=== PATIENT | male | born 2000 | race Caucasian/White ===

== ENCOUNTER 2019-04-09 22:56 | Emergency (ER) | payer OTHER ==
[~2019-04-09] VITALS: Ht 170.2 cm; Wt 77.3 kg
[2019-04-09 23:02] VITALS: TEMP 99.4
[2019-04-10 00:31] LABS: BASO % 0.1 % (0.0-2.0); EOS # 0.1 (0.0-0.7); EOS % 1.3 % (0-4.0); GRAN # 4.8 (1.4-6.5); GRAN % 67.4 % (42.2-75.2); HEMATOCRIT 42.9 % (36.0-47.0); LYMPH # 1.5 (1.2-3.4); LYMPH % 20.9 % (20.0-51.0); MEAN CELL VOLUME 87 fl (80.0-95.0); MEAN CORPUSCULAR HEMOGLOBIN 31 pg (26.0-32.0); MEAN CORPUSCULAR HGB CONC 35 g/dl (33.0-37.0); MEAN PLATELET VOLUME 9.8 fl (7.4-10.4); MONO # 0.7 (0.1-0.6); MONO % 9.9 % (1.7-9.3); PLATELET COUNT 170 K/mm3 (130-400); RED BLOOD COUNT 4.91 M/mm3 (4.20-5.60); REDCELL DISTRIBUTION WIDTH-CV 11.9 % (11.5-14.5)
[2019-04-10 01:04] LABS: ALANINE AMINOTRANSFERASE 15 U/L (21-72); ALBUMIN 4.5 gm/dL (3.5-5.0); ALKALINE PHOSPHATASE 31 U/L (50-136); ANION GAP 9 mmol/L (7-16); AST,SGOT 26 U/L (15-37); BILIRUBIN,TOTAL 0.4 mg/dL (0.0-1.0); BLOOD UREA NITROGEN 16 mg/dL (9-20); C-REACTIVE PROTEIN 1.7 mg/dL (0.0-0.9); CALCIUM 9.9 mg/dL (8.4-10.2); CARBON DIOXIDE 27 mmol/L (22-30); CHLORIDE 102 mmol/L (98-107); CREATININE, serum 0.98 (0.66-1.25); GLUCOSE 104 mg/dL (74-106); LIPASE 25 U/L (23-300); POTASSIUM 3.8 mmol/L (3.4-5.0); SODIUM 139 mmol/L (137-145); TOTAL PROTEIN 7.7 gm/dL (6.4-8.2)
[2019-04-10 01:11] LABS: TROPONIN-I < 0.012 ng/mL (0.000-0.035)
[2019-04-10] MEDS ORDERED: PROTONIX 40MG T40 MG PO (02:46)
[2019-04-10] MEDS ORDERED: CARAFATE 1GM1 G PO (02:46)
[2019-04-10 03:00] VITALS: BP 127/79; PULSE 68
== END 2019-04-10 03:00 | disposition home or self-care (01) ==
LOC: COL.ER 22:56
PROVIDERS: Emergency Medicine
DX: K29.70 Gastritis, unspecified, without bleeding (principal)
CPT/HCPCS: C9113; J1170; J7030